=== PATIENT | male | born 1975 | race Caucasian/White ===

== ENCOUNTER 2019-02-21 11:43 | Inpatient (IN) | payer BC ==
[~2019-02-21] VITALS: Ht 177.8 cm; Wt 79.4 kg
--- NOTE | 2019-02-21 12:13 | NUR ---
ED Nurse Note: pt states he has been having abd pain, distension and laurent colored urine. relates s/s started approx 1 month ago. relates inabilty to keep po intake down.
[2019-02-21] MEDS ORDERED: Isovue-300 100ml vial INJ PRN (12:15)
--- NOTE | 2019-02-21 12:19 | NUR ---
ED Nurse Note: bedside ultrasound eval pt.
--- NOTE | 2019-02-21 12:29 | Emergency Room Report ---
History of Present Illness General Chief Complaint: Abdominal Pain Source: Patient (Padmini Gillette) Present Illness HPI 43-year-old male with extensive history of alcohol abuse and tobacco smoke here complaining of 2 months of worsening abdominal pain and distention. Patient reports that he recently went to his primary care physician and was diagnosed with an umbilical hernia however has noticed that his abdomen has been getting distended more more every day unable to tolerate solid and liquid food. Patient reports that every time he eats he feels nauseated and throws up immediately. Patient has extensive history of constipation and takes MiraLAX on a daily basis. Denies blood in stool, blood in vomit. Denies personal or family history of colon cancer. Patient reports in the past 10 years he has been drinking alcohol on daily basis and smoking tobacco heavily. Patient drives 4 hours on a daily basis goes to work and comes back and denies any exercising. Denies any other past medical history or medication intake. Denies drug use. Denies chest pain, shortness of breath, palpitation, headache , dizziness, and all other associated symptoms. (Padmini Gillette) Allergies: Coded Allergies: No Known Allergies (Unverified , 02/21/19) Patient History Past Medical History: see triage record Past Surgical History: unable to obtain Pertinent Family History: none Immunizations: UTD Reviewed Nursing Documentation: PMH: Agreed; PSxH: Agreed (Padmini Gillette) Nursing Documentation-PMH Past Medical History: No History, Except For Hx Gastrointestinal Problems: Yes - ULCERS (Padmini Gillette) Review of Systems All Other Systems: negative except mentioned in HPI (Padmini Gillette) Physical Exam Vital Signs Date Time Temp Pulse Resp B/P (MAP) Pulse Ox O2 Delivery O2 Flow Rate FiO2 02/21/19 11:49 98.2 97 18 122/85 (97) 94 Room Air Sp02 EP Interpretation: reviewed, normal General Appearance: normal inspection, well appearing, no apparent distress, GCS 15, non-toxic Head: normocephalic, atraumatic Eyes: bilateral eye normal inspection, bilateral eye PERRL, bilateral eye other - No icterus noted ENT: normal ENT inspection, hearing grossly normal Neck: normal inspection, full range of motion, supple Respiratory: normal inspection, chest non-tender, lungs clear, no rhonchi, no wheezing Cardiovascular #1: normal inspection, normal peripheral pulses, regular rate, rhythm, no edema, no gallop, no JVD, no murmur, normal capillary refill Cardiovascular #2: 2+ radial (R), 2+ radial (L) Gastrointestinal: normal bowel sounds, no bruit, no pulsatile mass, distended, guarding - Epigastric and left lower quadrant, hernia - Umbilical hernia noted reducible, other - McBurney's, Rovsing's, Castillo's Rectal: deferred Genitourinary: no CVA tenderness Musculoskeletal: normal inspection, back normal, digits/nails normal Neurologic: normal inspection, alert, oriented x3, responsive Psychiatric: normal inspection, judgement/insight normal, memory normal Skin: no rash, warm/dry, normal turgor, jaundice Lymphatic: normal inspection, no adenopathy (Padmini Gillette) Medical Decision Making PA Attestation All my diagnosis and treatment plans were reviewed ad discussed with my supervising physician Dr. Mares (Padmini Gillette) Medicare Attestation Please refer to the note for the full history exam and presentation patient was also examined and evaluated by myself I do agree with the exam and work-up Patient appears to be showing symptoms and clinical findings consistent with new onset ascites Patient has never had this fluid tested previously And will require further inpatient care (Sweta Mares DO) Diagnostic Impression: Primary Impression: Liver cirrhosis Additional Impression: Ascites ER Course 43-year-old male with extensive history of alcohol abuse and tobacco smoke here complaining of 2 months of worsening abdominal pain and distention. Patient reports that he recently went to his primary care physician and was diagnosed with an umbilical hernia however has noticed that his abdomen has been getting distended more more every day unable to tolerate solid and liquid food. Patient reports that every time he eats he feels nauseated and throws up immediately. Patient has extensive history of constipation and takes MiraLAX on a daily basis. Denies blood in stool, blood in vomit. Denies personal or family history of colon cancer. Patient reports in the past 10 years he has been drinking alcohol on daily basis and smoking tobacco heavily. Patient drives 4 hours on a daily basis goes to work and comes back and denies any exercising. Denies any other past medical history or medication intake. Denies drug use. Denies chest pain, shortness of breath, palpitation, headache , dizziness, and all other associated symptoms. Ddx considered but are not limited to: appendicitis, cholecystis, gastritis, gastroenteritis, UTI, pyelonephritis, SBO, diverticulitis, influenza with GI manifestation, OK, liver cirrhosis Vital signs: are WNL, pt. is afebrile H&PE are most consistent with: Liver cirrhosis, ascites ORDERS: abdominal CT, abdominal pain set, EKG, abdominal US ED INTERVENTIONS: Claribel Patient was admited with diagnosis of liver cirrhosis to Dr. Lagos under supervision of : Suzan pt stable at time of admission Dr. Mares already consulted Dr. Thakur Positive cocaine, AST and ALT elevated, PT/PTT INR elevated (Padmini Gillette) EKG Diagnostic Results Rate: normal Rhythm: NSR ST Segments: no acute changes (Padmini Gillette) Chest X-Ray Diagnostic Results Chest X-Ray Diagnostic Results : Chest X-Ray Ordered: Yes # of Views/Limited/Complete: 1 View Indication: Other EP Interpretation: Yes PA Xray: Interpretation reviewed, by supervising MD, and agrees with findings. Interpretation: no consolidation, no effusion, no pneumothorax Impression: No acute disease Electronically Signed by: Padmini Albarran PA-C (Padmini Gillette) CT/MRI/US Diagnostic Results CT/MRI/US Diagnostic Results #1: Imaging Test Ordered: The abdomen with contrast Impression Liver cirrhosis CT/MRI/US Diagnostic Results #2: Imaging Test Ordered: Abdominal ultrasound Impression Ascites noted secondary to liver cirrhosis (Padmini Gillette) Last Vital Signs Date Time Temp Pulse Resp B/P (MAP) Pulse Ox O2 Delivery O2 Flow Rate FiO2 02/21/19 12:15 97 18 Room Air 02/21/19 11:49 98.2 122/85 (97) 94 (Padmini Gillette) Disposition: ADMITTED INPATIENT Condition: Stable Scripts No Active Prescriptions or Reported Meds Padmini Gillette Feb 21, 2019 12:29 Sweta Mares DO Feb 21, 2019 14:25
--- NOTE | 2019-02-21 12:43 | NUR ---
ED Nurse Note: pt tolerates iv start and lab draw well. aware to remain npo. portable xrays done
--- NOTE | 2019-02-21 12:48 | NUR ---
ED Nurse Note: us tech here. pt relates no active nausea or pain.
[2019-02-21 12:53] LABS: APPEARANCE,URINE CLEAR; BASOPHILS % (AUTO) 1.2 % (0.0-2.0); BILIRUBIN, URINE 2+ (NEGATIVE); COLOR,URINE BROWN; EOSINOPHILS % (AUTO) 1.5 % (0.0-3.0); GLUCOSE, URINE (UA) NEGATIVE (NEGATIVE); HEMATOCRIT 40.1 % (42.0-52.0); HEMOGLOBIN 13.6 G/DL (14.2-18.0); KETONES,URINE 3+ (NEGATIVE); LEUKOCYTE ESTERASE ,URINE 1+ (NEGATIVE); LYMPHOCYTES % (AUTO) 27.6 % (20.0-45.0); MEAN CORPUSCULAR VOLUME 109 FL (80-99); MONOCYTES % (AUTO) 9.3 % (1.0-10.0); NEUTROPHILS % (AUTO) 60.4 % (45.0-75.0); PH,URINE 5 (4.5-8.0); PLATELET COUNT 295 K/UL (150-450); PROTEIN,URINE 3+ (NEGATIVE); RED BLOOD COUNT 3.68 M/UL (4.70-6.10); RED CELL DISTRIBUTION WIDTH 13.3 % (11.6-14.8); UROBILINOGEN,URINE 12 MG/DL (0.0-1.0); WHITE BLOOD COUNT 13.8 K/UL (4.8-10.8)
[2019-02-21 12:58] LABS: INR 1.2 (0.9-1.1)
[2019-02-21 13:01] LABS: NITRITE,URINE NEGATIVE (NEGATIVE)
[2019-02-21 13:04] LABS: ANION GAP 11 mmol/L (5-15); BLOOD UREA NITROGEN 10 mg/dL (7-18); CALCIUM 8.5 MG/DL (8.5-10.1); CARBON DIOXIDE 27 MMOL/L (21-32); CHLORIDE 103 MMOL/L (98-107); CREATININE 0.6 MG/DL (0.55-1.30); POTASSIUM 3.2 MMOL/L (3.5-5.1); SODIUM 141 MMOL/L (136-145)
[2019-02-21 13:15] LABS: ALANINE AMINOTRANSFERASE 78 U/L (12-78); ALBUMIN 3.1 G/DL (3.4-5.0); ALBUMIN/GLOBULIN RATIO 0.8 (1.0-2.7); ALKALINE PHOSPHATASE 347 U/L (46-116); ASPARTATE AMINO TRANSFERASE 244 U/L (15-37); BILIRUBIN,TOTAL 1.7 MG/DL (0.2-1.0); CKMB 0.9 NG/ML (0.0-3.6); CREATINE KINASE 113 U/L (26-308)
[2019-02-21 13:18] LABS: BILIRUBIN,DIRECT 1.3 MG/DL (0.0-0.3)
--- NOTE | 2019-02-21 13:57 | Diagnostic Imaging Report ---
Indication: Chest pain Comparison: None A single view chest radiograph was obtained. Findings: Cardiomediastinal appearance is within normal limits for age. There is mild basal atelectasis. Pulmonary vascularity is appropriate. The diaphragmatic contour is smooth and costophrenic angles are sharp. No pleural effusions are identified. The bones are unremarkable. Impression: No acute findings. Mild basal atelectasis
--- NOTE | 2019-02-21 14:23 | NUR ---
ED Nurse Note: pt to ct scan
--- NOTE | 2019-02-21 14:58 | NUR ---
ED Nurse Note: returned from ct scan, awaits further dispo
--- NOTE | 2019-02-21 15:12 | Diagnostic Imaging Report ---
Indication: Abdominal pain Technique: Continuous helical transaxial imaging of the abdomen and pelvis was obtained from the lung bases to the pubic symphysis during intravenous contrast administration. Coronal 2-D reformats were also obtained. Study obtained in a Siemens sensation [address] Automatic Exposure Control was utilized. Total Dose length Product (DLP): 849.[address] Dose Index Volume (CTDIvol): 15.47 mGy Comparison: None Findings: Minimal patchy groundglass opacification of the lung bases noted, nonspecific. There is moderate to severe geographic patchy heterogeneous fatty attenuation of the liver. There is ascites. There is a nodularity of the liver. Spleen is normal size. Pancreas is unremarkable. The gallbladder is unremarkable. There is no biliary ductal dilatation seen. Partial visualization of the appendix which is normal in appearance. Bladder is nondistended. There are bilateral inguinal hernias containing fat. Bowel gas pattern is nonobstructive. There is no hydronephrosis. Spondylolisthesis demonstrated at L5-S1. There are bilateral pars interarticularis defects. There is narrowing of the L5-S1 disc and a hyperlordotic curvature. Well-circumscribed lucent lesions are demonstrated within the shaft and neck of the right proximal femur. These may be unicameral bone cysts or other lucent lesions not evaluated well on this exam. IMPRESSION: Hepatomegaly with the severe fatty infiltration. Suspected chronic disease with the nodularity liver surface. Suspected portal hypertension. Moderate ascites Umbilical hernia containing fat L5 spondylolysis. Grade 1 spondylolisthesis L5 on S1. Bilateral inguinal hernias containing fat. Lucent bone lesions demonstrated within the proximal right femur. The CT scanner at [facility] is accredited by the [employer] and the scans are performed using dose optimization techniques as appropriate to a performed exam including Automatic Exposure control.
--- NOTE | 2019-02-21 15:28 | NUR ---
ED Nurse Note: pt able to have ice chips per pa. pt aware of plan for admission
[2019-02-21 15:32] VITALS: BP 113/77
--- NOTE | 2019-02-21 15:36 | NUR ---
ED Nurse Note: pt without prior hospital admission. no swabs obtained as pt does not meet criteria. belongings list done.
--- NOTE | 2019-02-21 15:43 | Diagnostic Imaging Report ---
Indication: Abdominal pain Technique: Grayscale and duplex Doppler imaging of the abdomen performed. Comparison: None Findings: The liver is echogenic, enlarged measuring 23 cm initial surface nodularity. Doppler interrogation of the main portal vein shows patency with hepatopedal, monophasic flow. There is no biliary ductal dilatation identified. CBD is 3.6 mm. There is moderate ascites. The spleen is borderline enlarged measuring slightly over 13 cm. Gallbladder is unremarkable. Sonographic Castillo's sign was negative per technologist. There demonstrated part of the pancreas, aorta and IVC show no definite abnormalities. Both kidneys appear unremarkable. There is no hydronephrosis. IMPRESSION: Hepatomegaly with fatty infiltration and evidence of chronic disease/cirrhosis. Ascites and splenomegaly suggestive of portal hypertension.
--- NOTE | 2019-02-21 16:41 | NUR ---
ED Nurse Note: admitting md piedra of pt. pt remains without n/v/abd pain after ice chips
--- NOTE | 2019-02-21 17:48 | NUR ---
ED Nurse Note: attempted to call report, no rn available at this time
--- NOTE | 2019-02-21 18:07 | NUR ---
ED Nurse Note: pt report given to kirsty, awaiting pt.
[2019-02-21 18:12] VITALS: BP 105/59
--- NOTE | 2019-02-21 18:28 | NUR ---
ED Nurse Note: assistant credit manager aware to transport pt to med surg. rn relief charge aware no admitting paperwork. assistant credit manager unavailabe to transport [facility] med surg
--- NOTE | 2019-02-21 18:33 | NUR ---
ED Nurse Note: pt transported to 4e with mirror machine feeder kofi
--- NOTE | 2019-02-21 18:44 | NUR ---
NURSE NOTES: Received report from DEVORA Russo RN. at 1800 Pt brought toe [id number] at 1841. Pt transferred to bed from [facility], vitals obtained. No complaints of pain, no apparent distress noted. bed in lowest position, call light within reach.
[2019-02-21 19:02] VITALS: BP 118/76
--- NOTE | 2019-02-21 19:12 | History and Physical ---
History of Present Illness General Date patient seen: Feb 21, 2019 Time patient seen: 16:30 Reason for Hospitalization: Abdominal Pain Present Illness HPI 43 y/o M who comes to the ED due to increasing abdominal discomfort, difficulty sleeping and pain. His abdomen has become distended in the past 2-3 weeks and initially he thought it was due to constipation which he empirically treated with laxatives. Today, the distention in the abdomen was more marked and upon ED evaluation he was noted to have ascites in CT abdomen. His AST/ALT ratio is elevated consistent with alcoholic injury. He usually drinks Tequila on a daily basis for the last 2-3 years to cope with anxiety and reports having AM alcohol to cope with the fear to drive to work. 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 He reports using clean neddles when he has tattoos. He is accompanied by his partner and she reports that his alcohol intake is MUCH HIGHER than he reports. No prior hematemesis noted. Allergies: Coded Allergies: No Known Allergies (Unverified , 02/21/19) Medication History No Active Prescriptions or Reported Meds Patient History Healthcare decision maker Resuscitation status Full Code Advanced Directive on File Review of Systems Gastrointestinal: Reports: abdominal pain All Other Systems: negative except mentioned in HPI Physical Exam General Appearance: WD/WN, moderate distress Lines, tubes and drains: peripheral HEENT: normocephalic Neck: normal alignment Respiratory/Chest: lungs clear, normal breath sounds Breasts: no masses Cardiovascular/Chest: normal peripheral pulses Abdomen: normal bowel sounds, distended, tender, hepatomegaly, other - 6-7 cm hepatomegaly Neurologic: superintendent radio communications II-XII grossly normal Musculoskeletal: normal muscle bulk Last 24 Hour Vital Signs Date Time Temp Pulse Resp B/P (MAP) Pulse Ox O2 Delivery O2 Flow Rate FiO2 02/21/19 19:02 99.5 96 16 118/76 (90) 02/21/19 18:54 Room Air 02/21/19 18:12 90 18 105/59 98 Room Air 02/21/19 18:06 98.2 90 18 105/59 98 Room Air 02/21/19 15:32 92 18 113/77 98 Room Air 02/21/19 12:15 97 18 Room Air 02/21/19 11:49 98.2 97 18 122/85 (97) 94 Room Air Laboratory Tests Test 02/21/19 12:30 White Blood Count 13.8 K/UL (4.8-10.8) H Red Blood Count 3.68 M/UL (4.70-6.10) L Hemoglobin 13.6 G/DL (14.2-18.0) L Hematocrit 40.1 % (42.0-52.0) L Mean Corpuscular Volume 109 FL (80-99) H Mean Corpuscular Hemoglobin 36.8 PG (27.0-31.0) H Mean Corpuscular Hemoglobin Concent 33.8 G/DL (32.0-36.0) Red Cell Distribution Width 13.3 % (11.6-14.8) Platelet Count 295 K/UL (150-450) Mean Platelet Volume 8.2 FL (6.5-10.1) Neutrophils (%) (Auto) 60.4 % (45.0-75.0) Lymphocytes (%) (Auto) 27.6 % (20.0-45.0) Monocytes (%) (Auto) 9.3 % (1.0-10.0) Eosinophils (%) (Auto) 1.5 % (0.0-3.0) Basophils (%) (Auto) 1.2 % (0.0-2.0) Prothrombin Time 12.4 SEC (9.30-11.50) H Prothromb Time International Ratio 1.2 (0.9-1.1) H Activated Partial Thromboplast Time 32 SEC (23-33) Urine Color Brown Urine Appearance Clear Urine pH 5 (4.5-8.0) Urine Specific [place] 1.020 (1.005-1.035) Urine Protein 3+ (NEGATIVE) H Urine Glucose (UA) Negative (NEGATIVE) Urine Ketones 3+ (NEGATIVE) H Urine Blood 1+ (NEGATIVE) H Urine Nitrite Negative (NEGATIVE) Urine Bilirubin 2+ (NEGATIVE) H Urine Ictotest Positive (NEGATIVE) Urine Urobilinogen 12 MG/DL (0.0-1.0) H Urine Leukocyte Esterase 1+ (NEGATIVE) H Urine RBC 0-2 /HPF (0 - 0) H Urine WBC 0-2 /HPF (0 - 0) Urine Squamous Epithelial Cells Occasional /LPF Urine Bacteria Occasional /HPF (NONE) Urine Mucus Moderate /LPF (NONE/OCC) H Sodium Level 141 MMOL/L (136-145) Potassium Level 3.2 MMOL/L (3.5-5.1) L Chloride Level 103 MMOL/L (98-107) Carbon Dioxide Level 27 MMOL/L (21-32) Anion Gap 11 mmol/L (5-15) Blood Urea Nitrogen 10 mg/dL (7-18) Creatinine 0.6 MG/DL (0.55-1.30) Estimat Glomerular Filtration Rate > 60 mL/min (>60) Glucose Level 107 MG/DL (74-106) H Calcium Level 8.5 MG/DL (8.5-10.1) Total Bilirubin 1.7 MG/DL (0.2-1.0) H Direct Bilirubin 1.3 MG/DL (0.0-0.3) H Aspartate Amino Transf (AST/SGOT) 244 U/L (15-37) H Alanine Aminotransferase (ALT/SGPT) 78 U/L (12-78) Alkaline Phosphatase 347 U/L (46-116) H Total Creatine Kinase 113 U/L (26-308) Creatine Kinase MB 0.9 NG/ML (0.0-3.6) Creatine Kinase MB Relative Index 0.7 Troponin I 0.000 ng/mL (0.000-0.056) Total Protein 6.9 G/DL (6.4-8.2) Albumin 3.1 G/DL (3.4-5.0) L Globulin 3.8 g/dL Albumin/Globulin Ratio 0.8 (1.0-2.7) L Lipase 245 U/L (73-393) Urine Opiates Screen Negative (NEGATIVE) Urine Barbiturates Screen Negative (NEGATIVE) Phencyclidine (PCP) Screen Negative (NEGATIVE) Urine Amphetamines Screen Negative (NEGATIVE) Urine Benzodiazepines Screen Negative (NEGATIVE) Urine Cocaine Screen Positive (NEGATIVE) H Urine Marijuana (THC) Screen Positive (NEGATIVE) H Serum Alcohol 322 mg/dL Height (Feet): 5 Height (Inches): 10.00 Weight (Pounds): 175 Medications Current Medications Medications (Trade) Dose Ordered Sig/Alan Route PRN Reason Start Time Stop Time Status Last Admin Dose Admin Dextrose (Dextrose 50%) 25 ml Q30M PRN IV Hypoglycemia 02/21/19 19:15 03/23/19 19:14 Dextrose (Dextrose 50%) 50 ml Q30M PRN IV Hypoglycemia 02/21/19 19:15 03/23/19 19:14 Docusate Sodium (Colace) 100 mg EVERY 12 HOURS ORAL 02/21/19 21:00 03/23/19 20:59 Iopamidol (Isovue-300 100ml) 100 ml NOW PRN INJ Radiology Procedure 02/21/19 12:15 Pantoprazole (Protonix) 40 mg DAILY ORAL 02/22/19 09:00 03/24/19 08:59 Assessment/Plan Status: stable Status Narrative 43 y/o Male admitted with abdominal distention and pain. # New onset ascites - US guided paracentesis in AM with fluid analysis - AFP - GI consult requested with Dr. Kitchen from ED # Elevated LFT's Ddx include alcoholic hepatitis vs alcohol injury vs hepatitis Hepatitis panel Follow up GI consult # Chronic alcohol intake - Risk for DT - Ativan PRN - Add thiamine and folate - Counselling and SW follow up - Patient has a good support system with his partner who works at [employer] [facility] [employer]. # FULL CODE Oleg Lagos MD Feb 21, 2019 19:12
--- NOTE | 2019-02-21 19:53 | NUR ---
HAND-OFF: Report given to FERMIN Moore.
[2019-02-21 20:00] VITALS: BP 114/71
[2019-02-21] MEDS ORDERED: Docusate 100mg cap ORAL SCH (21:00)
[2019-02-21] MEDS: Docusate 100mg cap ORAL SCH (21:09)
[2019-02-21] MEDS: Thiamine HCl 100 MG in D5W 55 ML IVPB SCH (21:10)
--- NOTE | 2019-02-21 23:49 | NUR ---
NURSE NOTES: Pt is in bed, awake, alert and ambulatory. Vitas stable. No acute distress noted. Pt is scheduled for paracentesis tomorrow, consent signed by patient. Bed ,locked low in position, side rails up and call light within reach.
[2019-02-22 04:00] VITALS: BP 127/73
--- NOTE | 2019-02-22 04:36 | NUR ---
NURSE NOTES: Pt is in bed, asleep. No acute distress noted.
[2019-02-22] MEDS: LORazepam Inj 2mg/ml 1ml IV PRN ×3 (06:03→21:03)
--- NOTE | 2019-02-22 07:20 | NUR ---
HAND-OFF: Report given to FERMIN Lino.
--- NOTE | 2019-02-22 07:41 | NUR ---
NURSE NOTES: Patient received in stable condition, sleeping in bed. Breathing even and unlabored on room air. No signs of pain or respiratory distress observed, Scheduled for parencentesis today. Consent signed and in chart. Call light placed within reach, will continue to monitor.
[2019-02-22 08:00] VITALS: BP 123/70
[2019-02-22] MEDS: Docusate 100mg cap ORAL SCH ×2 (09:00→21:02)
--- NOTE | 2019-02-22 13:32 | Diagnostic Imaging Report ---
Indications: Ascites Procedure: Informed consent obtained. Ultrasound used to localize optimal puncture site. Sterile prepping and draping over the optimum site. Local anesthesia with 1% lidocaine. Under real-time ultrasound guidance, puncture of the peritoneal space performed using paracentesis needle. Digital image was saved and archived. Stylet removed. Catheter placed to vacuum bottle suction. Fluid was aspirated. Patient tolerated procedure well, without immediate complication. Findings: Followup sonography demonstrates complete resolution of peritoneal fluid Impression: Successful ultrasound-guided paracentesis, yielding 2.3 liters of fluid
--- NOTE | 2019-02-22 14:36 | NUR ---
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 ASCITES VS: BP 105/59, P 90, T 98.2, RR 18, SpO2 98 WBC 13.8, RBC 3.68, H&H 13.6/40.1, K 3.2, AST 244, ALP 347, Total Bilirubin 1.7, Direct bilirubin 1.3 IS:K-DUR 40meq D50 IV ADMITTED TO MED/SURG DCP: RETURN HOME
[2019-02-22 16:00] VITALS: BP 125/72
--- NOTE | 2019-02-22 16:01 | General Progress Note ---
Assessment/Plan Status: stable Status Narrative Assessment/Plan Status: stable Status Narrative 43 y/o Male admitted with abdominal distention and pain. # New onset ascites - US guided paracentesis 2.75 lt removed. - AFP pending - GI consult requested with Dr. Kitchen and TECHNICAL SUPPORT ASSOCIATE in the GI department. - Discriminative function 4 - not consistent with alcoholic hepatitis - Will start Spironolactone and Furosemide trial. # Elevated LFT's Ddx include alcoholic hepatitis vs alcohol injury vs hepatitis PENDING serologies Hepatitis panel ordered Follow up GI consult # Chronic alcohol intake - Risk for DT - Ativan PRN - thiamine and folate - Counselling and SW follow up - Patient has a good support system with his partner who works at [employer] [place]. # FULL CODE Subjective Allergies: Coded Allergies: No Known Allergies (Unverified , 02/21/19) All Systems: reviewed and negative except above Subjective Improvement in his abdominal discomfort and pain after removal of 2.7 lt in paracentesis. Mild tremors and anxiety noted. mild diaphoresis. Objective Last 24 Hour Vital Signs Date Time Temp Pulse Resp B/P (MAP) Pulse Ox O2 Delivery O2 Flow Rate FiO2 02/22/19 09:00 Room Air 02/22/19 08:00 99.1 86 18 123/70 (87) 97 02/22/19 04:00 99.1 84 18 127/73 (91) 96 02/21/19 21:00 Room Air 02/21/19 20:00 99.2 93 18 114/71 (85) 98 02/21/19 19:02 99.5 96 16 118/76 (90) 02/21/19 18:54 Room Air 02/21/19 18:12 90 18 105/59 98 Room Air 02/21/19 18:06 98.2 90 18 105/59 98 Room Air Intake and Output 02/21/19 02/22/19 19:00 07:00 Intake Total 0 ml 656 ml Balance 0 ml 656 ml Intake Oral 0 ml 600 ml IV Total 56 ml # Voids 1 1 Laboratory Tests 02/22/19 05:00: Alpha Fetoprotein [Pending] 02/22/19 12:27: Body Fluid Total Protein [Pending] Height (Feet): 5 Height (Inches): 10.00 Weight (Pounds): 175 General Appearance: WD/WN EENT: PERRL/EOMI Neck: non-tender, normal alignment Cardiovascular: normal peripheral pulses, normal rate Respiratory/Chest: lungs clear Abdomen: soft, hypoactive bowel sounds, hepatomegaly Edema: trace edema Neurologic: fire chief II-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
[2019-02-22] MEDS ORDERED: Tubing IV Secondary IV ONE (17:18)
[2019-02-22] MEDS ORDERED: NS 275ml ONE (17:18)
[2019-02-22 18:00] VITALS: BP 126/82
[2019-02-22] MEDS: Spironolactone 50mg tab ORAL SCH (18:01)
[2019-02-22] MEDS: Furosemide 40mg tab ORAL SCH (18:01)
[2019-02-22 18:39] LABS: ANION GAP 9 mmol/L (5-15); BLOOD UREA NITROGEN 7 mg/dL (7-18); CALCIUM 8.5 MG/DL (8.5-10.1); CARBON DIOXIDE 29 MMOL/L (21-32); CHLORIDE 100 MMOL/L (98-107); CREATININE 0.6 MG/DL (0.55-1.30); POTASSIUM 3.4 MMOL/L (3.5-5.1); SODIUM 138 MMOL/L (136-145)
--- NOTE | 2019-02-22 19:48 | NUR ---
HAND-OFF: Report given to Oscar Torres.
[2019-02-22 20:00] VITALS: BP 114/72
[2019-02-22] MEDS: Thiamine HCl 100 MG in D5W 55 ML IVPB SCH (21:02)
--- NOTE | 2019-02-22 21:30 | NUR ---
NURSE NOTES: Pt is in bed, awake, alert and ambulatory. Vitas stable. No acute distress noted. Pt is given 1mg Ativan IV for tremors. Bed ,locked low in position, side rails up and call light within reach. Pt will be monitored.
--- NOTE | 2019-02-22 22:00 | NUR ---
NURSE NOTES: 20mEq KCl po given for low potassium as ordered by doctor.
[2019-02-23] VITALS: BP 119/83
[2019-02-23 04:00] VITALS: BP 108/74
--- NOTE | 2019-02-23 05:00 | NUR ---
NURSE NOTES: Pt is in bed, asleep. No acute distress noted. Vitals stable.
[2019-02-23] MEDS: LORazepam Inj 2mg/ml 1ml IV PRN ×3 (06:06→15:31)
[2019-02-23 06:57] LABS: HEMOGLOBIN 12.2 G/DL (14.2-18.0); MEAN CORPUSCULAR VOLUME 111 FL (80-99); PLATELET COUNT 179 K/UL (150-450); RED BLOOD COUNT 3.34 M/UL (4.70-6.10); RED CELL DISTRIBUTION WIDTH 12.9 % (11.6-14.8)
[2019-02-23 07:07] LABS: ANION GAP 7 mmol/L (5-15); BLOOD UREA NITROGEN 5 mg/dL (7-18); CALCIUM 8.5 MG/DL (8.5-10.1); CARBON DIOXIDE 29 MMOL/L (21-32); CHLORIDE 99 MMOL/L (98-107); CREATININE 0.6 MG/DL (0.55-1.30); POTASSIUM 3.8 MMOL/L (3.5-5.1); SODIUM 135 MMOL/L (136-145)
--- NOTE | 2019-02-23 07:10 | NUR ---
HAND-OFF: Report given to FERMIN Lino.
--- NOTE | 2019-02-23 07:19 | NUR ---
NURSE NOTES: Patient received sleeping in bed, breathing even and unlabored. No signs of respiratory distress or pain observed. No signs of anxiety noted. IV site on left arm patent and intact. SCD's are on. Call light placed within reach, will continue to monitor.
[2019-02-23 08:00] VITALS: BP 111/76
[2019-02-23] MEDS: Furosemide 40mg tab ORAL SCH (08:08)
[2019-02-23] MEDS: Docusate 100mg cap ORAL SCH (08:08)
[2019-02-23] MEDS: Spironolactone 50mg tab ORAL SCH (08:09)
--- NOTE | 2019-02-23 11:59 | GI Initial Consult Note ---
History of Present Illness General Date patient seen: Feb 23, 2019 Time patient seen: 11:57 Reason for Hospitalization: Abdominal Pain Referring physician: KENYA Reason for Consultation: CIRRHOSIS Present Illness HPI 43-year-old male with extensive history of alcohol abuse and tobacco smoke here complaining of 2 months of worsening abdominal pain and distention. Patient reports that he recently went to his primary care physician and was diagnosed with an umbilical hernia however has noticed that his abdomen has been getting distended more more every day unable to tolerate solid and liquid food. Patient reports that every time he eats he feels nauseated and throws up immediately. Patient has extensive history of constipation and takes MiraLAX on a daily basis. Denies blood in stool, blood in vomit. Denies personal or family history of colon cancer. Patient reports in the past 10 years he has been drinking alcohol on daily basis and smoking tobacco heavily. Patient drives 4 hours on a daily basis goes to work and comes back and denies any exercising. Denies any other past medical history or medication intake. Denies drug use. Denies chest pain, shortness of breath, palpitation, headache , dizziness, and all other associated symptoms. GI consulted for ascites. Patient seen, awake alert and oriented x4 has complaint of abdominal discomfort this time. The patient is now status post paracentesis yielding 2.3 L of fluid. Noted that the patient has cirrhosis based on the abdominal ultrasound. The patient reports history of at that endoscopy proximately 2 weeks ago, in which she noted no reported esophageal varices. Denies any hematemesis or coffee-ground. Denies any melena or hematochezia. Patient presents today with hemoglobin 12.2, sodium 135, ammonia level of 87, total bilirubin of 1.7, AST of 244, ALT 78, alkaline phosphatase of 347 and alpha-fetoprotein of 8.5. The patient admits to extensive alcohol use. Home Meds No Active Prescriptions or Reported Meds Med list reviewed/reconciled: Yes Allergies: Coded Allergies: No Known Allergies (Unverified , 02/21/19) Patient History History Provided By: Patient, Medical Record [facility] Narrative Past Medical History: No History, Except For Hx Gastrointestinal Problems: Yes - ULCERS Social History: Reports: alcohol use Review of Systems All Other Systems: negative except mentioned in HPI Physical Exam Vital Signs Date Time Temp Pulse Resp B/P (MAP) Pulse Ox O2 Delivery O2 Flow Rate FiO2 02/21/19 11:49 98.2 97 18 122/85 (97) 94 Room Air Sp02 EP Interpretation: reviewed, normal Labs Laboratory Tests Test 02/22/19 12:27 02/22/19 17:41 02/23/19 05:20 Body Fluid Source Paracentesis Body Fluid Volume 24 mL Body Fluid Appearance Hazy (Clear) Body Fluid RBC 122 /CUMM Body Fluid Total Nucleated Cells 108 /CUMM Body Fluid Polynuclear WBCs (%) 8 % Body Fluid Mononuclear WBCs (%) 73 % Body Fluid Mesothelial Cells (%) 19 % Body Fluid Total Protein 2.9 g/dL (.) Body Fluid Amylase 19 U/L (.) Sodium Level 138 MMOL/L (136-145) 135 MMOL/L (136-145) L Potassium Level 3.4 MMOL/L (3.5-5.1) L 3.8 MMOL/L (3.5-5.1) Chloride Level 100 MMOL/L (98-107) 99 MMOL/L (98-107) Carbon Dioxide Level 29 MMOL/L (21-32) 29 MMOL/L (21-32) Anion Gap 9 mmol/L (5-15) 7 mmol/L (5-15) Blood Urea Nitrogen 7 mg/dL (7-18) 5 mg/dL (7-18) L Creatinine 0.6 MG/DL (0.55-1.30) 0.6 MG/DL (0.55-1.30) Estimat Glomerular Filtration Rate > 60 mL/min (>60) > 60 mL/min (>60) Glucose Level 104 MG/DL (74-106) 85 MG/DL (74-106) Calcium Level 8.5 MG/DL (8.5-10.1) 8.5 MG/DL (8.5-10.1) White Blood Count 7.0 K/UL (4.8-10.8) Red Blood Count 3.34 M/UL (4.70-6.10) L Hemoglobin 12.2 G/DL (14.2-18.0) L Hematocrit 37.0 % (42.0-52.0) L Mean Corpuscular Volume 111 FL (80-99) H Mean Corpuscular Hemoglobin 36.5 PG (27.0-31.0) H Mean Corpuscular Hemoglobin Concent 33.0 G/DL (32.0-36.0) Red Cell Distribution Width 12.9 % (11.6-14.8) Platelet Count 179 K/UL (150-450) Mean Platelet Volume 7.8 FL (6.5-10.1) Neutrophils (%) (Auto) % (45.0-75.0) Lymphocytes (%) (Auto) % (20.0-45.0) Monocytes (%) (Auto) % (1.0-10.0) Eosinophils (%) (Auto) % (0.0-3.0) Basophils (%) (Auto) % (0.0-2.0) Differential Total Cells Counted 100 Neutrophils % (Manual) 53 % (45-75) Lymphocytes % (Manual) 35 % (20-45) Monocytes % (Manual) 10 % (1-10) Eosinophils % (Manual) 2 % (0-3) Basophils % (Manual) 0 % (0-2) Band Neutrophils 0 % (0-8) Platelet Estimate Adequate Platelet Morphology Normal Macrocytosis 2+ Ammonia 87 umol/L (11-32) H General Appearance: well appearing, no apparent distress, alert Head: normocephalic EENT: PERRL/EOMI, normal ENT inspection Neck: supple Respiratory: normal breath sounds, no respiratory distress Cardiovascular: normal rate Gastrointestinal: normal inspection, non tender, soft, normal bowel sounds, non -distended, ascites Rectal: deferred Genitourinary: deferred Musculoskeletal: normal inspection, back normal Neurologic: normal inspection, alert, oriented x3, responsive Psychiatric: normal inspection, judgement/insight normal, memory normal Skin: normal inspection, normal color, no rash, warm/dry, palpation normal, well hydrated Lymphatic: normal inspection, no adenopathy Current Medications Current Medications Medications (Trade) Dose Ordered Sig/Alan Route PRN Reason Start Time Stop Time Status Last Admin Dose Admin Dextrose (Dextrose 50%) 25 ml Q30M PRN IV Hypoglycemia 02/21/19 19:15 03/23/19 19:14 Dextrose (Dextrose 50%) 50 ml Q30M PRN IV Hypoglycemia 02/21/19 19:15 03/23/19 19:14 Docusate Sodium (Colace) 100 mg EVERY 12 HOURS ORAL 02/21/19 21:00 03/23/19 20:59 02/23/19 08:08 Folic Acid (Folate) 1 mg DAILY ORAL 02/22/19 09:00 03/24/19 08:59 02/23/19 08:09 Furosemide (Lasix) 40 mg DAILY ORAL 02/22/19 16:15 03/24/19 16:14 02/23/19 08:08 Iopamidol (Isovue-300 100ml) 100 ml NOW PRN INJ Radiology Procedure 02/21/19 12:15 Lorazepam (Ativan 2mg/ml 1ml) 1 mg Q2H PRN IV For Anxiety 02/21/19 19:00 02/28/19 18:59 02/23/19 06:06 Pantoprazole (Protonix) 40 mg DAILY ORAL 02/22/19 09:00 03/24/19 08:59 02/23/19 08:09 Spironolactone (Aldactone) 100 mg DAILY ORAL 02/22/19 16:15 03/24/19 16:14 02/23/19 08:09 Thiamine HCl 100 mg/Dextrose 56 ml @ 112 mls/hr Q24H IVPB 02/21/19 21:00 03/23/19 20:59 02/22/19 21:02 GI: Plan Problems: (1) Liver cirrhosis Plan Abdominal ultrasound reviewed, noted with the liver cirrhosis Abdominal pelvis CT reviewed, possible portal hypertension Status post paracentesis yielding 2.3 L Patient not a candidate for glucocorticoid steroid therapy. Patient instructed to avoid alcohol Okay to advance diet We will add low-dose lactulose given elevated ammonia levels Start patient on diuretic therapy Patient will need out patient follow-up to manage cirrhosis Will benefit from a fibroid scan to stage Will require repeat abdominal ultrasound in 6 months Electrolyte correction Follow labs Discussed with Dr. Kitchen. Thank you for this patient referral, we will follow. The patient was seen and examined at bedside and all new and available data was reviewed in the patients chart. I agree with the above findings, impression and plan. (Patient seen earlier today. Signature stamp does not reflect patient encounter time.). - MD Irlanda Zuñiga,[facility] [place] [employer] OPERATOR Feb 23, 2019 11:59
[2019-02-23 12:00] VITALS: BP 126/75
[2019-02-23] MEDS ORDERED: Lactulose 10gm/15ml UDC ORAL SCH (13:00)
[2019-02-23] MEDS ORDERED: FUROSEMIDE40 MG ORAL (16:26)
[2019-02-23] MEDS ORDERED: SPIRONOLACTONE50 MG ORAL (16:27)
[2019-02-23] MEDS ORDERED: LACTULOSE20 GM/301 ORAL (16:27)
[2019-02-23] MEDS ORDERED: ATIVAN1 MG ORAL (16:29)
--- NOTE | 2019-02-23 16:34 | Discharge Instructions ---
Discharge Instructions Discharge Instructions Diet: 2 GM sodium (low sodium) Resume Normal Activity?: Yes Activity: no restrictions For Surgical Patients Contact your physician for: pain, swelling For Congestive Heart Failure Reminder Report to your physician any weight gain of 5 pounds or more in one week. Oleg Lagos MD Feb 23, 2019 16:34
--- NOTE | 2019-02-23 16:38 | Discharge Summary ---
Discharge Summary Hospital Course Date of Admission Feb 21, 2019 at 15:05 Date of Discharge Feb 23, 2019 Admitting Diagnosis LIVER CIRHOSIS HPI Inderjit Diaz is a 43 year old male who was admitted on Feb 21, 2019 at 15: 05 for new onset ascites/ 43-year-old male with extensive history of alcohol abuse and tobacco smoke here complaining of 2 months of worsening abdominal pain and distention. Patient reports that he recently went to his primary care physician and was diagnosed with an umbilical hernia however has noticed that his abdomen has been getting distended more more every day unable to tolerate solid and liquid food. Patient reports that every time he eats he feels nauseated and throws up immediately. Patient has extensive history of constipation and takes MiraLAX on a daily basis. Denies blood in stool, blood in vomit. Denies personal or family history of colon cancer. Patient reports in the past 10 years he has been drinking alcohol on daily basis and smoking tobacco heavily. Patient drives 4 hours on a daily basis goes to work and comes back and denies any exercising. Denies any other past medical history or medication intake. GI consulted for ascites. Patient seen, awake alert and oriented x4 has complaint of abdominal discomfort this time. The patient is now status post paracentesis yielding 2.3 L of fluid on 02/22 . Noted that the patient has cirrhosis based on the abdominal ultrasound. The patient reports history of at that endoscopy proximately 2 weeks ago, in which she noted no reported esophageal varices. Denies any hematemesis or coffee-ground. Denies any melena or hematochezia. Patient presents today with hemoglobin 12.2, sodium 135 , ammonia level of 87, total bilirubin of 1.7, AST of 244, ALT 78, alkaline phosphatase of 347 and alpha-fetoprotein of 8.5. The patient admits to extensive alcohol use and per discussion with GI service he is medically stable to discharge on diuretic regimen and follow up as outpatient with GI. He was counselled about abstience, AA, emotional and psychological support. His parents and partner are present and in agreement. Rx for ativan due to withdrawal was given. furosemide, aldactone and lactulose. Discharge Condition Upon Discharge: stable Discharge Disposition Patient was discharged to home Discharge Instructions Discharge Instructions Activity: no restrictions For Surgical Patients Contact your physician for: pain, swelling Oleg Lagos MD Feb 23, 2019 16:38
--- NOTE | 2019-02-23 17:01 | NUR ---
NURSE NOTES: Patient discharged to home, accompanied by in private vehicle. Belongings confirmed and reviewed, no items missing. IV site safely removed, covered with gauze and tape. Patient noted to be in stable condition, ambulatory with steady gait. Breathing unlabored.
[2019-02-24] MEDS ORDERED: Spironolactone 25mg tab ORAL SCH (09:00)
--- NOTE | 2019-02-26 20:51 | Cardiology Report ---
APPROVED REPORT EKG Measurement Heart [id number] Normal sinus rhythm Nonspecific ST and T wave abnormality Prolonged QT Abnormal ECG
== END 2019-02-23 16:59 | disposition home or self-care (01) | DRG 433 ==
LOC: EMR 14:24 → 4E 15:05 → EDBEDREQ 17:57 → EMR 18:33
PROC: 0W9G3ZZ Drainage of Peritoneal Cavity, Percutaneous Approach (ICD-10-PCS; principal; 2019-02-22)
DX: K70.11 Alcoholic hepatitis with ascites (principal); F10.239 Alcohol dependence with withdrawal, unspecified; F17.200 Nicotine dependence, unspecified, uncomplicated; K74.60 Unspecified cirrhosis of liver; K42.9 Umbilical hernia without obstruction or gangrene; K59.00 Constipation, unspecified
CPT/HCPCS: 36415; 71045; 74177; 76700; 76942; 80048; 80053; 80307; 80329; 81003; 82105; 82140; 82248; 82550; 82553; 83690; 84484; 85007; 85025; 85610; 85730; 86703; 86850; 86900; 86901; 88104; 89051; 93005; 96374; 99285; J2405; J8499